=== PATIENT | male | born 1990 | race Caucasian/White ===

== ENCOUNTER 2018-06-28 07:38 | Emergency (ER) | payer OTHER ==
[~2018-06-28] VITALS: Ht 177.8 cm; Wt 68.0 kg
--- NOTE | 2018-06-28 08:04 | ED GENERAL ADULT ---
History of Present Illness General Chief Complaint: Abdominal Pain/Flank Pain Stated Complaint: ABD PAIN, DIARRHEA X 2 DAYS Source: patient Exam Limitations: no limitations Vital Signs & Intake/Output Vital Signs & Intake/Output Vital Signs Date Time Temp Pulse Resp B/P B/P Pulse O2 O2 Flow FiO2 Mean Ox Delivery Rate 06/28 0820 Room Air Room Air 06/28 0742 98.4 107 18 125/78 98 Room Air Room Air Allergies Coded Allergies: NO KNOWN ALLERGIES (06/28/18) Triage Note: TRIAGE: 28 Y/O MALE PRESENTS C/O FEVER, DIARRHEA X 2 DAYS. REPORTS +NAUSEA, DENIES VOMITING. "I FEEL LIKE MOTION SICK, LIKE I WANT TO THROW UP, BUT I CAN'T." C/O MID LOWER ABDOMINAL PAIN AND CRAMPING. NUMERICAL PAIN VALUE VARIES. REPORTS USED TYLENOL LAST NIGHT TO COMBAT NIGHTLY FEVER. Triage Nurses Notes Reviewed? yes HPI: Healthy 28-year-old male presents with nausea, diarrhea and abdominal discomfort since yesterday. He reports subjective fevers. He denies any other medical issues. He still has his appendix. Past History Travel History Traveled to [place] past 21 day No Medical History Any Pertinent Medical History? none Neurological: NONE EENT: NONE Cardiovascular: NONE Respiratory: NONE Gastrointestinal: NONE Hepatic: NONE Renal: NONE Musculoskeletal: NONE Psychiatric: NONE Endocrine: NONE Blood Disorders: NONE Cancer(s): NONE Surgical History Surgical History: none Psychosocial History What is your primary language Kinyarwanda Tobacco Use: Never used ETOH Use: denies use Illicit Drug Use: denies illicit drug use Family History Hx Contributory? No Review of Systems Review of Systems Constitutional: Reports: chills, fever. EENTM: Denies: blurred vision, double vision, visual changes. Respiratory: Denies: cough, hemoptysis, orthopnea. Cardiovascular: Denies: chest pain, edema, orthopena. GI: Reports: abdominal pain, diarrhea, nausea. Denies: bloating, constipation. Genitourinary: Denies: discharge, dysuria, frequency. Musculoskeletal: Denies: back pain, gout. Skin: Denies: cysts, change in skin color, change in hair/nails. Neurological/Psychological: Denies: anxiety, ataxia. Hematologic/Endocrine: Denies: bruising, bleeding. Physical Exam Physical Exam General Appearance: well developed/nourished, no apparent distress, alert, awake , anxious Head: atraumatic, normal appearance, active bleeding Eyes: Bilateral: PERRL, EOMI, pale conjunctivae. Ears, Nose, Throat: normal pharynx, normal ENT inspection Neck: normal inspection, supple Respiratory: normal breath sounds, chest non-tender, no respiratory distress Cardiovascular: regular rate/rhythm Gastrointestinal: normal bowel sounds, soft, non-tender, no organomegaly Back: normal inspection, normal range of motion Extremities: normal inspection, normal capillary refill, normal range of motion, no edema Skin: normal color, warm/dry, cyanosis Core Measures ACS in differential dx? No CVA/TIA Diagnosis: No Sepsis Present: No Sepsis Focused Exam Completed? No Progress Differential Diagnoses 28-year-old male comes in with abdominal discomfort and nausea, diarrhea and subjective fever. Patient is healthy The patient has a benign abdominal exam. No tenderness. No right lower quadrant tenderness. Normal walking, jumping and moving. No CVA tenderness. Extremely low suspicion for appendicitis or acute surgical pathology. We will get labs and treat the patient symptomatically and reassess. Plan of Care: Orders Procedure Date/time Status Saline Lock 06/28 800 Active LIPASE 06/28 800 Complete COMPREHENSIVE METABOLIC PANEL 06/28 800 Complete CBC WITHOUT DIFFERENTIAL 06/28 800 Complete Laboratory Tests 06/28/18 0813: Anion Gap 15, Estimated GFR > 60, BUN/Creatinine Ratio 10.0, Glucose 122 H, Calcium 10.0, Total Bilirubin 1.0, AST 24, ALT 23, Alkaline Phosphatase 59, Total Protein 7.7, Albumin 4.7, Globulin 3.0, Albumin/Globulin Ratio 1.6, Lipase 56, CBC w Diff NO MAN DIFF REQ, RBC 5.63, MCV 88.6, MCH 30.2, MCHC 34.1, RDW 12.3, MPV 7.8, Gran % 80.4 H, Lymphocytes % 10.5 L, Monocytes % 8.9, Eosinophils % 0, Basophils % 0.2, Absolute Granulocytes 5.5, Absolute Lymphocytes 0.7 L, Absolute Monocytes 0.6, Absolute Eosinophils 0, Absolute Basophils 0 Initial ED EKG: none Comments: 904 patient doing well. No distress. Abdomen is better. Exam is better. No nausea or vomiting. P.o. tolerant. Plan will be discharged home with symptomatic treatment. Reexamination done, no concern for appendicitis. Patient given appendicitis warnings. Mandatory recheck tomorrow. Departure Departure Time of Disposition: 904 Disposition: HOME OR SELF CARE Condition: Stable Clinical Impression Primary Impression: Abdominal pain Secondary Impressions: Diarrhea Referrals: Kavon Medeiros MD (PCP/Family) Additional Instructions: Return tomorrow for reexamination. Return sooner if your worse. Take Tylenol Motrin for pain. Take nausea medicine. Used to BRAT diet. Departure Forms: Customer Survey General Discharge Information Critical Care Note Critical Care Note Critical Care Time: non-applicable
[2018-06-28 08:47] LABS: ABSOLUTE BASOPHIL COUNT 0 /CUMM (0.0-0.2); ABSOLUTE EOSINOPHIL COUNT 0 /CUMM (0.0-0.7); ABSOLUTE GRANULOCYTE CT 5.5 /CUMM (1.4-6.5); ABSOLUTE LYMPH COUNT 0.7 /CUMM (1.2-3.4); ABSOLUTE MONOCYTE COUNT 0.6 /CUMM (0.10-0.60); BASOPHIL % 0.2 % (0.0-2.0); EOSINOPHIL % 0 % (0-5); GRANULOCYTE % 80.4 % (42.2-75.2); HEMATOCRIT 49.9 % (42-52); MEAN CORPUSCULAR HGB 30.2 PG (27.0-31.0); MEAN CORPUSCULAR HGB CONC 34.1 G/DL (33.0-37.0); MEAN CORPUSCULAR VOLUME 88.6 FL (80.0-94.0); MEAN PLATELET VOLUME 7.8 FL (7.4-10.4); PLATELET COUNT 181 /CUMM (130-400); RBC DISTRIBUTION WIDTH 12.3 % (11.5-14.5); RED BLOOD CELL CT 5.63 /CUMM (4.70-6.10); WHITE BLOOD CELL COUNT 6.8 /CUMM (4.8-10.8)
[2018-06-28 09:13] VITALS: BP 122/61
[2018-06-28] MEDS ORDERED: ZOFRAN4 M2 PO (09:16)
== END 2018-06-28 09:20 ==
LOC: ERH 07:38
PROVIDERS: Emergency Medicine
DX: R10.9 Unspecified abdominal pain (principal); R19.7 Diarrhea, unspecified
CPT/HCPCS: 96361; 96374; 96375; J1885; J2405